=== PATIENT | female | born 2005 | race African-American/Black ===

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

== ENCOUNTER 2025-01-17 03:45 | Emergency (ER) | payer OTHER, SELFPAY | END 2025-01-17 04:30 | disposition home or self-care (01) | LOC: ERS 03:45 | DX: M25.552 Pain in left hip (principal) | CPT/HCPCS: 99283 ==